=== PATIENT | female | born 1940 | race Caucasian/White ===

== ENCOUNTER → 2023-11-04 07:54 | Outpatient (REF) | payer MEDICARE, OTHER, SELFPAY | LOC: RAD 07:54 | PROVIDERS: ATTENDING PHYSICIAN Internal Medicine Cardiovascular Disease; FAMILY PHYSICIAN Internal Medicine | DX: M79.604 Pain in right leg (principal); M79.605 Pain in left leg | CPT/HCPCS: 93925 ==

== ENCOUNTER → 2023-12-04 10:22 | Outpatient (REF) | payer MEDICARE, OTHER, SELFPAY ==
[2023-12-04 11:22] LABS: ALT (SGPT) 12 U/L (0-35); AST (SGOT) 22 U/L (14-36); Albumin 4.2 g/dl (3.5-5.0); Alkaline Phosphatase 82 U/L (38-126); Blood Urea Nitrogen 10 mg/dl (7-17); Calcium 9.7 mg/dl (8.4-10.2); Chloride 104 mmol/L (98-107); Glucose 103 mg/dl (70-99); HDL Cholesterol 66 mg/dl; LDL Cholesterol, Calculated 118 mg/dl; Sodium 139 mmol/L (135-145); Total Bilirubin 0.9 mg/dl (0.2-1.3); Total Cholesterol 219 mg/dl (50-199); Total Protein 6.7 g/dl (6.3-8.2); Triglyceride 179 mg/dl (10-149); Very Low Density Lipoprotein 35 mg/dl (0-30); eGFR > 60.00
[2023-12-04 11:31] LABS: Carbon Dioxide 27 mmol/L (22-30)
[2023-12-04 11:51] LABS: TSH Reflex To Free T4 1.86 uIU/ml (0.47-4.68)
== END ==
LOC: REG 10:22
PROVIDERS: ATTENDING PHYSICIAN Internal Medicine
DX: E78.00 Pure hypercholesterolemia, unspecified (principal); M79.18 Myalgia, other site
CPT/HCPCS: 36415; 80053; 80061; 84443

== ENCOUNTER → 2024-01-31 09:14 | Outpatient (REF) | payer MEDICARE, OTHER, SELFPAY | LOC: RCS 09:14 | PROVIDERS: ATTENDING PHYSICIAN Internal Medicine Cardiovascular Disease; FAMILY PHYSICIAN Internal Medicine | DX: I34.0 Nonrheumatic mitral (valve) insufficiency (principal) | CPT/HCPCS: 93306 ==

== ENCOUNTER → 2024-03-02 09:38 | Outpatient (REF) | payer MEDICARE, OTHER, SELFPAY ==
[2024-03-02 10:59] LABS: HDL Cholesterol 73 mg/dl; LDL Cholesterol, Calculated 117 mg/dl; Total Cholesterol 251 mg/dl (50-199); Triglyceride 305 mg/dl (10-149); Very Low Density Lipoprotein 61 mg/dl (0-30)
== END ==
LOC: REG 09:38
PROVIDERS: ATTENDING PHYSICIAN Internal Medicine Cardiovascular Disease; FAMILY PHYSICIAN Internal Medicine
DX: E75.6 Lipid storage disorder, unspecified (principal)
CPT/HCPCS: 80061

== ENCOUNTER → 2024-03-19 12:33 | Outpatient (REF) | payer MEDICARE, OTHER, SELFPAY | LOC: RAD 12:33 | PROVIDERS: ATTENDING PHYSICIAN Surgery Vascular Surgery; FAMILY PHYSICIAN Internal Medicine | DX: Z89.512 Acquired absence of left leg below knee (principal); M79.604 Pain in right leg | CPT/HCPCS: 93922; 93925 ==

== ENCOUNTER → 2024-04-15 10:15 | Outpatient (REF) | payer MEDICARE, OTHER, SELFPAY ==
[2024-04-15 14:25] LABS: ALT (SGPT) 17 U/L (0-35); AST (SGOT) 27 U/L (14-36); Albumin 4.6 g/dl (3.5-5.0); Alkaline Phosphatase 81 U/L (38-126); Blood Urea Nitrogen 12 mg/dl (7-17); Calcium 9.6 mg/dl (8.4-10.2); Carbon Dioxide 28 mmol/L (22-30); Chloride 102 mmol/L (98-107); Glucose 90 mg/dl (70-99); HDL Cholesterol 84 mg/dl; LDL Cholesterol, Calculated 113 mg/dl; Potassium 4.2 mmol/L (3.5-5.1); Sodium 140 mmol/L (135-145); Total Bilirubin 0.6 mg/dl (0.2-1.3); Total Cholesterol 236 mg/dl (50-199); Total Protein 7.3 g/dl (6.3-8.2); Triglyceride 196 mg/dl (10-149); Very Low Density Lipoprotein 39 mg/dl (0-30); eGFR > 60.00
== END ==
LOC: REG 10:15
PROVIDERS: ATTENDING PHYSICIAN Internal Medicine
DX: E78.2 Mixed hyperlipidemia (principal)
CPT/HCPCS: 36415; 80053; 80061

== ENCOUNTER → 2024-05-13 11:18 | Outpatient (REF) | payer MEDICARE, OTHER, SELFPAY | LOC: WDC 11:18 | PROVIDERS: ATTENDING PHYSICIAN Internal Medicine | DX: Z12.31 Encounter for screening mammogram for malignant neoplasm of breast (principal) | CPT/HCPCS: 77063; 77067 ==

== ENCOUNTER → 2024-06-11 11:54 | Outpatient (REF) | payer MEDICARE, OTHER, SELFPAY ==
[2024-06-11 13:09] LABS: % Basophils 0.4 % (0-2); % Eosinophils 2.8 % (0-6); % Immature Granulocytes 0.3 % (0-0.5); % Lymphocytes 23.5 % (20.5-51.1); % Monocytes 6.9 % (1.7-9.3); % Neutrophils 66.1 % (42.2-75.2); Absolute Eosinophils 0.2 10^3/uL (0-0.7); Absolute Lymphocytes 1.8 10^3/uL (1.2-3.4); Absolute Monocytes 0.5 10^3/uL (0.1-0.6); Hematocrit 37.4 % (37.0-47.0); Hemoglobin 13.1 g/dL (12.0-16.0); Mean Corpuscular Hgb 30.7 pg (27.0-31.0); Mean Corpuscular Volume 87.6 fL (81.0-99.0); Mean Platelet Volume 8.9 fL (7.4-10.4); Nucleated Red Blood Cells % 0 %; Platelet Count 244 10^3/uL (130-400); Red Blood Cell Count 4.27 10^6/uL (4.20-5.40); Red Cell Dist. Width 12.2 % (11.5-14.5); White Blood Cell Count 7.5 10^3/uL (4.8-10.8)
[2024-06-11 14:01] LABS: Vitamin D, 25-OH*** 90.1 ng/mL (30-80)
[2024-06-11 14:07] LABS: TSH Reflex To Free T4 2.98 uIU/ml (0.47-4.68)
[2024-06-11 14:33] LABS: Vitamin B12 958 pg/ml (239-931)
== END ==
LOC: REG 11:54
PROVIDERS: ATTENDING PHYSICIAN Internal Medicine
DX: M62.81 Muscle weakness (generalized) (principal); I10 Essential (primary) hypertension; R53.83 Other fatigue; Z79.899 Other long term (current) drug therapy
CPT/HCPCS: 36415; 82306; 82607; 84443; 85025

== ENCOUNTER → 2024-07-19 11:00 | Outpatient (REF) | payer MEDICARE, OTHER, SELFPAY | LOC: MRI 3T 11:00 | PROVIDERS: ATTENDING PHYSICIAN Orthopaedic Surgery; FAMILY PHYSICIAN Internal Medicine | DX: M54.50 Low back pain, unspecified (principal) | CPT/HCPCS: 72148 ==

== ENCOUNTER → 2025-02-26 09:43 | Outpatient (REF) | payer MEDICARE, OTHER, SELFPAY ==
[2025-02-26 11:22] LABS: ALT (SGPT) 16 U/L (0-35); AST (SGOT) 22 U/L (14-36); Albumin 4.6 g/dl (3.5-5.0); Alkaline Phosphatase 77 U/L (38-126); Blood Urea Nitrogen 12 mg/dl (7-17); Calcium 9.9 mg/dl (8.4-10.2); Carbon Dioxide 29 mmol/L (22-30); Chloride 104 mmol/L (98-107); Glucose 105 mg/dl (70-99); HDL Cholesterol 85 mg/dl; LDL Cholesterol, Calculated 162 mg/dl; Potassium 4.0 mmol/L (3.5-5.1); Sodium 139 mmol/L (135-145); Total Protein 7.4 g/dl (6.3-8.2); Very Low Density Lipoprotein 33 mg/dl (0-30); eGFR > 60.00
== END ==
LOC: REG 09:43
PROVIDERS: ATTENDING PHYSICIAN Internal Medicine
DX: E78.2 Mixed hyperlipidemia (principal); I10 Essential (primary) hypertension
CPT/HCPCS: 36415; 80053; 80061

== ENCOUNTER 2025-03-22 08:25 | Inpatient (IN) | payer MEDICARE, OTHER, SELFPAY ==
--- NOTE | 2025-02-11 11:47 | CM ---
Addendum entered by Maria Eugenia Garcia RN 02/15/25 09:57:
Cm left message for patient to update regarding [facility]. CM is awaiting call back from Vida at [facility] to get an update on any further discussions regarding guaranteed admission to [facility].
CM will await update.
Original Note:
CM discussed with patient that hospital discharge planning cannot guarantee a placement at [facility]. CM will discuss further with [facility] crew scheduler as this had been address. CM advised patient that [facility] was to call [facility] and Dr. Almanzar Why to discuss
admission. CM left message for Vida at [facility] to discuss if she has spoke with [facility].
[2025-03-05 11:55] LABS: Glycohemoglobin (HgbA1c) 5.2 % (4.0-5.9)
[2025-03-05 14:09] VITALS: BMI 29.2
[2025-03-05 15:06] LABS: Hematocrit 36.8 % (37.0-47.0); Hemoglobin 12.6 g/dL (12.0-16.0); Mean Corp Hgb Conc. 34.2 g/dL (33.0-37.0); Mean Corpuscular Volume 90.9 fL (81.0-99.0); Platelet Count 320 10^3/uL (130-400); Red Cell Dist. Width 12.2 % (11.5-14.5)
[2025-03-05 17:55] VITALS: BMI 29.2
[2025-03-22] VITALS (14 sets, daily range): BP systolic 100–152; BP diastolic 47–85; PULSE 59–83; O2SAT 98; BMI 29.2
--- NOTE | 2025-03-22 08:59 | W.PN.UPDATE ---
Update Note
Progress Note Update
L hip OA s/p L BENJAMIN w/ Dr Aleman 03/22/25
- s/p R TKA, 03/2022, w/ Dr Wall
DVT prophylaxis - ASA, b/l venous foot pumps
HTN - + parameters - monitor BP
CAD, status post PCI with drug-eluting stent to RCA 09/2010 and PAD - resumed Aspirin but at 325 mg dosing x4 weeks for DVT prophylaxis
Suspected MEMO and Chronic GORDON - O2 stable
- IS
GERD - add Pepcid HS
Ambulatory dysfunction w/ balance difficulties - on fall precautions
Peripheral neuropathy - consider Gabapentin or Lyrica
Iron deficiency anemia - pre-op hgb stable - non-invasive hgb in AM
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
HLD
Mildly dilated ascending aorta, 4.0 cm
First degree AV block
Mild valvular disease
Remote palpitations
Hepatic and renal cysts
Questionable remote TIA without residual side effects
Benign essential tremor
Multilevel degenerative disc disease with stenosis
Lyme disease
Insomnia
Hearing impairment bilaterally
Discharge planning: Pt, at the very least, will need VN/home PT upon d/c
[2025-03-22] MEDS: NORMOSOL-R/PLASMALYTE-A 1000 IV ×2 (09:31→14:27)
[2025-03-22] MEDS: MOBIC 15 MG PO (09:31)
[2025-03-22] MEDS: TYLENOL 650 MG PO ×3 (09:31→21:08)
--- NOTE | 2025-03-22 12:53 | CM ---
CM reviewed medical records. CM contacted [facility] to evaluate for acceptance. CM sent referral via [facility].
PLAN: Pending acceptance to acute rehab.
[2025-03-22] MEDS: ROXICODONE 5 MG PO (13:48)
--- NOTE | 2025-03-22 15:10 | PTCARENOTE ---
1405 Pt arrived from PACU. VSS. AAOX3. IVF infusing. Neurovascular checks with in normal limits. Oriented to room and call rahman. Scant drainage on primaseal.
[2025-03-22] MEDS: VITAMIN D3 (cholecalciferol) 50 MCG PO (15:43)
--- NOTE | 2025-03-22 15:51 | PTCARENOTE ---
while working with PT/OT patient became lightheaded, pale and diaphoretic. Pt moved back to bed. JOSE DE JESUS Waterman notified. Stat midodrine ordered.
[2025-03-22] MEDS: ROXICODONE 10 MG PO (17:55)
[2025-03-22] MEDS: ASPIRIN 325 MG PO (17:55)
[2025-03-22] MEDS: ANCEF 5 IV (17:57)
[2025-03-22] MEDS: SENOKOT 17.2 MG PO (21:07)
[2025-03-22] MEDS: PEPCID 20 MG PO (21:07)
[2025-03-22] MEDS: DECADRON 4 MG PO (21:08)
[2025-03-22] MEDS: COLACE 100 MG PO (21:08)
[2025-03-22] MEDS: BACTROBAN 2% OINTMENT 1 APPLIC NASAL (21:09)
[2025-03-22] MEDS: NORVASC 10 MG PO (21:09)
[2025-03-22] MEDS: MAALOX 30 ML PO (23:21)
[2025-03-22] MEDS: TYLENOL PO (23:35)
[2025-03-23] VITALS (7 sets, daily range): BP systolic 109–153; BP diastolic 52–77; PULSE 61–85; O2SAT 97
[2025-03-23] MEDS: ANCEF 5 IV (01:41)
[2025-03-23] MEDS: ROXICODONE 10 MG PO (01:41)
[2025-03-23] MEDS: TYLENOL PO (04:00)
[2025-03-23] MEDS: COLACE 100 MG PO ×2 (07:55→21:23)
[2025-03-23] MEDS: VITAMIN B-12 1000 MCG PO (07:55)
[2025-03-23] MEDS: DECADRON 4 MG PO ×2 (07:56→21:22)
[2025-03-23] MEDS: ASPIRIN 325 MG PO (07:56)
[2025-03-23] MEDS: SENOKOT 17.2 MG PO ×2 (07:56→21:00)
[2025-03-23] MEDS: TYLENOL 650 MG PO ×4 (07:56→21:00)
[2025-03-23] MEDS: CELEBREX 200 MG PO (07:56)
[2025-03-23] MEDS: VITAMIN D3 (cholecalciferol) 50 MCG PO (07:56)
[2025-03-23] MEDS: ROXICODONE 5 MG PO (07:56)
[2025-03-23] MEDS: BACTROBAN 2% OINTMENT 1 APPLIC NASAL ×2 (07:57→21:22)
--- NOTE | 2025-03-23 12:18 | CM ---
CM reviewed medical records. Patient has been accepted to [facility] for discharge on 03/24. CM updated patient and daughter at bedside. Patient and daughter are grateful and excited to be transitioning to Acute Rehab. CM updated orthopedic PA.
PLAN: [facility] on 03/24.
--- NOTE | 2025-03-23 13:13 | W.PN.ORTHO ---
Today's Communication / Plan
-
D/c tomorrow to [facility] if remaining clinically stable.
Assessment
.
Distal Motor Intact: Yes
Dressing:
Scant areas of old bleeding along incision.
Assessment:
L hip OA s/p L BENJAMIN w/ Dr Aleman 03/22/25
- s/p R TKA, 03/2022, w/ Dr Wall
DVT prophylaxis - ASA, b/l venous foot pumps
HTN - + parameters - monitor BP
- Initially BP post-surgery was soft and pt reportedly was mildly symptomatic. BPs/orthostatics have shown improvement w/ Midodrine for SBP <125 and adequate hydration
CAD, status post PCI with drug-eluting stent to RCA 09/2010 and PAD - resumed Aspirin but at 325 mg dosing x4 weeks for DVT prophylaxis
Suspected MEMO and Chronic GORDON - monitor O2
- IS
GERD - added Pepcid HS
Ambulatory dysfunction w/ balance difficulties - on fall precautions
Peripheral neuropathy - consider Gabapentin or Lyrica
Iron deficiency anemia - pre-op hgb stable - non-invasive hgb 9.2 POD 1
- Asymptomatic, hemodynamically stable
Left onlma-vvr-gedb amputation, 1967, secondary to trauma
HLD
Mildly dilated ascending aorta, 4.0 cm
First degree AV block
Mild valvular disease
Remote palpitations
Hepatic and renal cysts
Questionable remote TIA without residual side effects
Benign essential tremor
Multilevel degenerative disc disease with stenosis
Lyme disease
Insomnia
Hearing impairment bilaterally
Discharge planning: Pt has been accepted into [facility]. CM has confirmed that a bed is available tomorrow.
Plan
.
Surgery / Date: Sabine ALEXANDER w/ Dr Aleman 03/22/25
DVT Prophylaxis: Aspirin
Activity:
Out of bed.
PT/OT
Discharge Plan: Rehab
Subjective
.
.:
Patient resting comfortably in her chair.
Finished up w/ PT and did very well.
Very anxious w/ multiple questions asked - reassurance provided.
L hip pain minimal w/ current pain meds. No new complaints.
D/c likely tomorrow to [facility].
Vital Signs and Labs
.
Vital Signs and Labs:
Lab Results
03/05/25 09:47
Temp Pulse Resp BP Pulse Ox
97.8 F 59 16 123/64 97
03/23/25 11:50 03/23/25 13:04 03/23/25 11:50 03/23/25 13:04 03/23/25 11:50
Non-invasive Hgb result: 9.2
Physical Exam
-
HEENT: No pallor, cyanosis, or jaundice. Throat clear.
NECK: Supple. No JVD.
RESPIRATORY: Lungs clear to auscultation.
CVS: S1, S2 normal. RRR.�
ABDOMEN: Soft, non-tender. No distension.
EXTREMITIES: Strength equal, no R calf pain with palpation/dorisflexion. R calf soft. L BTK amputation w/ prosthetic in place.
PICKLE MAKER: AOx3. No focal deficits. excavating supervisor grossly intact
[2025-03-23] MEDS: PEPCID 20 MG PO (21:23)
[2025-03-23] MEDS: NORVASC PO (21:26)
[2025-03-24] MEDS: TYLENOL 650 MG PO ×2 (00:39→08:39)
[2025-03-24] MEDS: ROXICODONE 5 MG PO (00:39)
--- NOTE | 2025-03-24 03:34 | DOWNTIME ---
There was a [employer] Client Structural Test Engineer Downtime on 03/24/2025 from 0100 to 03/24/2025 at 0255. Downtime documentation of patient's care, including medication administrations, has been reconciled in the electronic record per guidelines. Refer to the
patient's paper chart under the miscellaneous tab to see printed paper medication records and downtime forms.
[2025-03-24] MEDS: TYLENOL PO (04:59)
[2025-03-24 08:00] VITALS: BP 139/71
--- NOTE | 2025-03-24 08:21 | CM ---
Addendum entered by Maria Eugenia Garcia RN 03/24/25 10:10:
Patient has been accepted to [facility] for transfer today. CM updated patient. Orthopedic PA made aware.
PLAN: [facility]
Original Note:
Cm spoke with Keri at [facility]. She will update this CM with plan for admission today.
[2025-03-24] MEDS: ASPIRIN 325 MG PO (08:37)
[2025-03-24] MEDS: COLACE 100 MG PO (08:37)
[2025-03-24] MEDS: VITAMIN B-12 1000 MCG PO (08:37)
[2025-03-24] MEDS: CELEBREX 200 MG PO (08:38)
[2025-03-24] MEDS: VITAMIN D3 (cholecalciferol) 50 MCG PO (08:38)
[2025-03-24] MEDS: SENOKOT 17.2 MG PO (08:38)
[2025-03-24] MEDS: DECADRON 4 MG PO (08:38)
--- NOTE | 2025-03-24 09:35 | W.PN.ORTHO ---
Today's Communication / Plan
-
D/c today since medically stable
Assessment
.
Distal Motor Intact: Yes
Dressing:
Small areas of old bleeding along incision line.
Assessment:
L hip OA s/p Sabine ALEXANDER w/ Dr Aleman 03/22/25
- s/p R TKA, 03/2022, w/ Dr Wall
DVT prophylaxis - ASA, b/l venous foot pumps
HTN - + parameters - BPs stable by POD 2
- Initially BP post-surgery was soft and pt reportedly was mildly symptomatic. BPs/orthostatics have shown improvement w/ Midodrine for SBP <125 and adequate hydration
CAD, status post PCI with drug-eluting stent to RCA 09/2010 and PAD - resumed Aspirin but at 325 mg dosing x4 weeks for DVT prophylaxis
Suspected MEMO and Chronic GORDON - O2 stable on RA
- IS
GERD - added Pepcid HS
Ambulatory dysfunction w/ balance difficulties - on fall precautions
Peripheral neuropathy - consider Gabapentin or Lyrica
Iron deficiency anemia - pre-op hgb stable - non-invasive hgb 12.2 POD 2
- Asymptomatic, hemodynamically stable
Left mtabb-bid-jqze amputation, 1967, secondary to trauma
HLD
Mildly dilated ascending aorta, 4.0 cm
First degree AV block
Mild valvular disease
Remote palpitations
Hepatic and renal cysts
Questionable remote TIA without residual side effects
Benign essential tremor
Multilevel degenerative disc disease with stenosis
Lyme disease
Insomnia
Hearing impairment bilaterally
Discharge planning: Pt has been accepted into [facility]. CM has confirmed that a bed is available today. Will d/c
Plan
.
Surgery / Date: Sabine ALEXANDER w/ Dr Aleman 03/22/25
DVT Prophylaxis: Aspirin
Activity:
Out of bed.
PT/OT
Discharge Plan: Rehab
Subjective
.
.:
Patient resting comfortably in her bed.
L hip pain still well controlled w/ current pain meds.
Denies any new significant complaints.
Eager for potential d/c to [facility] today.
Vital Signs and Labs
.
Vital Signs and Labs:
Lab Results
03/05/25 09:47
Temp Pulse Resp BP Pulse Ox
98.4 F 93 16 139/71 97
03/24/25 08:00 03/24/25 08:38 03/24/25 08:00 03/24/25 08:38 03/24/25 08:00
Non-invasive Hgb result: 12.2
Physical Exam
-
HEENT: No pallor, cyanosis, or jaundice. Throat clear.
NECK: Supple. No JVD.
RESPIRATORY: Lungs clear to auscultation.
CVS: S1, S2 normal. RRR.
ABDOMEN: Soft, non-tender. No distension.
EXTREMITIES: Strength equal, no calf pain with palpation/dorsiflexion. Calves soft.
DATA NETWORK ARCHITECT: AOx3. No focal deficits. talent specialist grossly intact
--- NOTE | 2025-03-24 09:43 | W.DS.TRANS ---
DC Summary - Test Driller
-
Discharge Instructions:
Sleep Apnea Risk Intermediate
Discharge Diagnosis/Procedures L hip OA s/p L BENJAMIN w/ Dr Aleman 03/17/25
Diet Regular
Additional Diets Adequate hydration, minimize opioids, and wear
TEDs stockings to prevent low blood pressure/
dizziness.
Activity As tolerated,With Walker
Driving Restrictions Not until seen by your Dr
Bathing Restrictions OK to Shower
Other Services PT,OT
Wound Care Dressing to be removed 1 week post-surgery.
Tenino to be removed at 2 week follow-up with
surgeon's office.
Instructions:
Stand-Alone Forms: Total Hip/Knee Replacement D/C
Changes to Home Medications: Yes
Discharge Medications:
DC Medications w/original date entered in [employer]
nitroglycerin 0.4 mg sublingual tablet 0.4 mg sublingual [id number] PRN chest pain 09/07/10
epinephrine 0.3 mg/0.3 mL injection, auto-injector 0.3 mg IM Q4H PRN allergies 02/21/22
cyanocobalamin (vitamin B-12) 1,000 mcg tablet,extended release 1,000 mcg PO DAILY #30 tabs 04/03/22
cholecalciferol (vitamin D3) 50 mcg (2,000 unit) capsule (Vitamin D3) 50 mcg PO DAILY Supplement 03/03/25
celecoxib 200 mg capsule (Celebrex) 200 mg PO DAILY #14 caps 03/17/25
dexamethasone 4 mg tablet 4 mg PO BID Anti-inflammatory #5 tabs 03/17/25
famotidine 20 mg tablet (Pepcid) 20 mg PO HS #30 tabs 03/17/25
ondansetron HCl 4 mg tablet 4 mg PO Q6H PRN nausea and vomiting #30 tabs 03/17/25
oxycodone 5 mg tablet 5 - 10 mg (1 - 2 x 5 mg) PO Q6H PRN moderate-severe pain #30 tabs 03/17/25
acetaminophen 325 mg tablet 650 mg (2 x 325 mg) PO Q4HWA #30 tabs 03/23/25
amlodipine 10 mg tablet 10 mg PO HS #30 tabs 03/23/25
aspirin 325 mg tablet 325 mg PO DAILY #30 tabs 03/23/25
docusate sodium 100 mg capsule 100 mg PO BID #30 caps 03/23/25
melatonin 5 mg tablet 5 mg PO HS PRN Insomnia #14 tabs 03/23/25
sennosides 8.6 mg tablet (Abby-maricarmen) 17.2 mg (2 x 8.6 mg) PO BID #30 tabs 03/23/25
magnesium hydroxide 400 mg/5 mL oral suspension (Milk of Magnesia) 30 ml PO HS constipation #3,780 mL 03/24/25
Home Medication Changes
celecoxib 200 mg capsule (Celebrex) 200 mg PO DAILY #14 caps 03/17/25
dexamethasone 4 mg tablet 4 mg PO BID Anti-inflammatory #5 tabs 03/17/25
famotidine 20 mg tablet (Pepcid) 20 mg PO HS #30 tabs 03/17/25
ondansetron HCl 4 mg tablet 4 mg PO Q6H PRN nausea and vomiting #30 tabs 03/17/25
oxycodone 5 mg tablet 5 - 10 mg (1 - 2 x 5 mg) PO Q6H PRN moderate-severe pain #30 tabs 03/17/25
acetaminophen 325 mg tablet 650 mg (2 x 325 mg) PO Q4HWA #30 tabs 03/23/25
aspirin 325 mg tablet 325 mg PO DAILY #30 tabs 03/23/25
docusate sodium 100 mg capsule 100 mg PO BID #30 caps 03/23/25
sennosides 8.6 mg tablet (Abby-maricarmen) 17.2 mg (2 x 8.6 mg) PO BID #30 tabs 03/23/25
magnesium hydroxide 400 mg/5 mL oral suspension (Milk of Magnesia) 30 ml PO HS constipation #3,780 mL 03/24/25
Pending Results: No
== END 2025-03-24 11:29 | DRG 470 ==
LOC: 2 SOUTH 08:25
PROVIDERS: ADMITTING PHYSICIAN Specialist; FAMILY PHYSICIAN Internal Medicine; REFERRING PHYSICIAN Internal Medicine Cardiovascular Disease
PROC: 0SRB04A Replacement of Left Hip Joint with Ceramic on Polyethylene Synthetic Substitute, Uncemented, Open Approach (ICD-10-PCS; 2025-03-22)
DX: M16.12 Unilateral primary osteoarthritis, left hip (principal); A69.20 Lyme disease, unspecified; Z96.651 Presence of right artificial knee joint; Z89.512 Acquired absence of left leg below knee; I10 Essential (primary) hypertension; E78.5 Hyperlipidemia, unspecified; I25.10 Atherosclerotic heart disease of native coronary artery without angina pectoris; Z95.5 Presence of coronary angioplasty implant and graft; I73.9 Peripheral vascular disease, unspecified; I44.0 Atrioventricular block, first degree; K21.9 Gastro-esophageal reflux disease without esophagitis; G62.9 Polyneuropathy, unspecified; M51.369 Other intervertebral disc degeneration, lumbar region without mention of lumbar back pain or lower extremity pain; M48.061 Spinal stenosis, lumbar region without neurogenic claudication; D50.9 Iron deficiency anemia, unspecified; G47.00 Insomnia, unspecified; G25.0 Essential tremor; H91.93 Unspecified hearing loss, bilateral; Z86.73 Personal history of transient ischemic attack (TIA), and cerebral infarction without residual deficits; Z79.82 Long term (current) use of aspirin; Z88.8 Allergy status to other drugs, medicaments and biological substances
CPT/HCPCS: 36415; 73502; 83036; 85027; 87070; 97110; 97116; 97163; 97167; 97530; 97535; C1713; C1776

== ENCOUNTER → 2025-04-22 14:05 | Outpatient (REF) | payer MEDICARE, OTHER, SELFPAY | LOC: RAD 14:05 | PROVIDERS: ATTENDING PHYSICIAN Physician Assistant Surgical; FAMILY PHYSICIAN Internal Medicine; REFERRING PHYSICIAN Specialist | DX: M79.89 Other specified soft tissue disorders (principal); Z96.642 Presence of left artificial hip joint; M79.661 Pain in right lower leg | CPT/HCPCS: 93971 ==